=== PATIENT | female | born 1985 | race African-American/Black ===

== ENCOUNTER 2019-01-05 17:42 | Emergency (ER) | payer SELFPAY ==
[~2019-01-05 17:42] MED LIST: QUET200T PO; SEROQUEL PO; SERT50TA PO; SUCR1TAB30; SUCR1TAB30 PO; TRAZ-213 PO; TRAZODONE; ZOLOFT
== END 2019-01-05 18:39 | disposition left against medical advice (07) ==
LOC: ER 17:42
DX: R06.02 Shortness of breath (principal); Z53.21 Procedure and treatment not carried out due to patient leaving prior to being seen by health care provider

== ENCOUNTER 2019-04-16 07:07 | Inpatient (IN) | payer MEDICAID, OTHER ==
[~2019-04-16] VITALS: Ht 160 cm; Wt 82.6 kg
[2019-04-16] MEDS ORDERED: FERR325T6 PO (07:20)
[2019-04-16] MEDS ORDERED: PNV1TABL76 PO (07:20)
[2019-04-16] MEDS ORDERED: NALOXONE HCL 0.4 MG/ML 1ML VIAL IM PRN (08:00)
[2019-04-16] MEDS ORDERED: METHYLERGONOVINE MALEATE 0.2 MG/ML IM PRN (08:00)
[2019-04-16] MEDS ORDERED: CARBOPROST TROMETHAMINE 250 MCG/ML AMPUL IM PRN (08:00)
[2019-04-16] MEDS ORDERED: BUTORPHANOL TARTRATE 2 MG/ML VIAL IV PRN (08:00)
[2019-04-16] MEDS ORDERED: LIDOCAINE HCL 1% 20ML VIAL (Pyxis) INJ INFIL PRN (08:00)
[2019-04-16] MEDS ORDERED: MISOPROSTOL 100MCG TABLET VG PRN (08:00)
[2019-04-16] MEDS ORDERED: DEXT 5%/LR + PITOCIN 20UNITS/L 1,000 ML IV PRN (08:00)
[2019-04-16] MEDS: LACTATED RINGERS 1,000 ML IV SCH ×2 (08:28→14:05)
[2019-04-16 08:54] LABS: BASOPHILS % 0.7 % (0.0-2.0); EOSINOPHILS % 1.4 % (0.0-5.0); HEMATOCRIT. 31.8 % (36.0-48.0); HEMOGLOBIN. 10.2 g/dL (12.0-16.0); LYMPHOCYTES % 23.4 % (20.0-50.0); MEAN CORPUSCULAR HEMOGLOBIN 22.2 pg (28.0-32.0); MEAN CORPUSCULAR VOLUME 69.2 fL (81.0-99.0); MEAN PLATELET VOLUME 8.8 fl (7.4-10.4); MONOCYTES % 10.1 % (2.0-8.0); NEUTROPHILS % 64.4 % (40.0-76.0); PLATELET 372 x1000/uL (130-400); RED BLOOD CELL COUNT 4.59 mill/uL (4.2-5.4); RED CELL DISTRIBUTION WIDTH 18.2 % (11.6-14.6)
[2019-04-16 08:59] LABS: CLARITY URINE TURBID (CLEAR); COLOR URINE DARK YELLOW (YELLOW); KETONES URINE NEGATIVE (NEGATIVE); LEUKOCYTE ESTERASE URINE TRACE (NEGATIVE); NITRITE URINE NEGATIVE (NEGATIVE); OCCULT BLOOD URINE 2+ (NEGATIVE); PH URINE 6.5 (4.5-8.0); PROTEIN URINE 2+ (NEGATIVE)
[2019-04-16 09:03] LABS: INR 0.9; PARTIAL THROMBOPLASTIN TIME 25.9 sec (23.4-31.0); PROTHROMBIN TIME 9.2 sec (9.6-11.0)
[2019-04-16] MEDS ORDERED: ONDANSETRON HCL 4MG/2ML INJ IV PRN (09:15)
[2019-04-16] MEDS ORDERED: DIPHENHYDRAMINE 50MG/ML VIAL IM PRN (09:15)
[2019-04-16] MEDS ORDERED: METOCLOPRAMIDE HCL 10MG/2ML VIAL IV PRN (09:15)
[2019-04-16] MEDS ORDERED: ROPIVACAINE HCL/PF EPIDURAL 200 ML EPI ONE (09:15)
[2019-04-16] MEDS ORDERED: DIPHENHYDRAMINE 50MG/ML VIAL IV PRN (09:15)
[2019-04-16 09:18] LABS: *BENZODIAZEPINES SCREEN URINE NEGATIVE (NEGATIVE); *COCAINE SCREEN URINE NEGATIVE (NEGATIVE)
[2019-04-16 09:19] LABS: *AMPHETAMINES SCREEN URINE NEGATIVE (NEGATIVE); *BARBITURATES SCREEN URINE NEGATIVE (NEGATIVE); METHADONE URINE SCREEN NEGATIVE (NEGATIVE); OPIATES URINE SCREEN NEGATIVE (NEGATIVE); PHENCYCLIDINE URINE SCREEN NEGATIVE (NEGATIVE)
[2019-04-16 09:21] LABS: PLATELET ESTIMATE NORMAL
[2019-04-16 09:35] LABS: CANNABINOID URINE SCREEN PRESUMTIVE POSITIVE (NEGATIVE)
[2019-04-16 13:11] LABS: HEPATITIS B SURFACE ANTIGEN NEGATIVE
[2019-04-16] MEDS ORDERED: SODIUM BICARBONATE 4% (2.4MEQ) 5ML VIAL IV ONE (13:11)
[2019-04-16] MEDS ORDERED: BUPIVACAINE HCL/PF 0.5% (5MG/ML) 10ML ONE (13:11)
[2019-04-16] MEDS ORDERED: BUPIVACAINE HCL/PF 0.25% (2.5MG/ML) 10ML ONE (13:11)
[2019-04-16] MEDS ORDERED: DEXT 5%/LR + PITOCIN 20UNITS/L 1,000 ML IV SCH (17:47)
[2019-04-16] MEDS ORDERED: DIPHENHYDRAMINE 25MG CAPSULE PO PRN (18:00)
[2019-04-16] MEDS ORDERED: IBUPROFEN 800MG TABLET PO PRN (18:00)
[2019-04-16] MEDS ORDERED: LANOLIN OINT 7GM TUBE TOP PRN (18:00)
[2019-04-16] MEDS ORDERED: IBUPROFEN 400MG TABLET PO PRN (18:00)
[2019-04-16] MEDS ORDERED: GUAIFENESIN-DM 200MG-20MG/10ML UDC PO PRN (18:00)
[2019-04-16] MEDS ORDERED: ALBUTEROL (0.5%) 2.5MG/0.5ML NEB HHN PRN (18:00)
[2019-04-16] MEDS ORDERED: GLYCERIN/WITCH HAZEL LEAF MEDICATED PAD TOP PRN (18:00)
[2019-04-16] MEDS ORDERED: BENZOCAINE/LANOLIN/ALOE VERA SPRAY TOP PRN (18:00)
[2019-04-16] MEDS ORDERED: HEMORRHOIDAL SUPP PR PRN (18:00)
[2019-04-16] MEDS ORDERED: ALBUTEROL (0.083%) 2.5MG/3ML NEB ONE (18:31)
[2019-04-16] MEDS: ACETAMINOPHEN WITH CODEINE 300/30MG TABLET PO PRN (19:58)
[2019-04-16 20:30] VITALS: BP 121/73
[2019-04-16] MEDS: DOCUSATE SODIUM 100MG CAPSULE PO SCH (21:12)
[2019-04-17 04:00] VITALS: BP 129/81
[2019-04-17] MEDS: ACETAMINOPHEN WITH CODEINE 300/30MG TABLET PO PRN ×3 (05:35→19:53)
[2019-04-17 07:09] LABS: BASOPHILS % 0.2 % (0.0-2.0); EOSINOPHILS % 0.6 % (0.0-5.0); HEMATOCRIT. 29.4 % (36.0-48.0); HEMOGLOBIN. 9.2 g/dL (12.0-16.0); LYMPHOCYTES % 13.7 % (20.0-50.0); MEAN CORPUSCULAR HEMOGLOBIN 21.8 pg (28.0-32.0); MEAN CORPUSCULAR VOLUME 69.5 fL (81.0-99.0); NEUTROPHILS % 78.5 % (40.0-76.0); PLATELET 355 x1000/uL (130-400); RED BLOOD CELL COUNT 4.23 mill/uL (4.2-5.4); RED CELL DISTRIBUTION WIDTH 18.9 % (11.6-14.6)
[2019-04-17 07:36] VITALS: BP 129/82
[2019-04-17] MEDS ORDERED: TETANUS, DIPHTHERIA, PERTUSSIS VAC/PF 0.5ML (>7YR OLD) IM ONE (08:00)
[2019-04-17] MEDS ORDERED: INFLUENZA VIRUS VACCINE(AFLURIA) 0.5ML SYR IM ONE (08:00)
[2019-04-17] MEDS: PRENATAL VIT/FE FUMARATE/FA TABLET PO SCH (08:28)
[2019-04-17] MEDS: FERROUS SULFATE 325MG TABLET PO SCH ×3 (08:29→17:24)
[2019-04-17 16:21] VITALS: BP 126/77
[2019-04-17 19:10] VITALS: BP 115/85
[2019-04-17] MEDS: DOCUSATE SODIUM 100MG CAPSULE PO SCH (19:52)
[2019-04-17 23:00] VITALS: BP 114/83
[2019-04-18] MEDS ORDERED: IBUP-2029 MT (05:26)
[2019-04-18] MEDS: PRENATAL VIT/FE FUMARATE/FA TABLET PO SCH (08:52)
[2019-04-18] MEDS: ACETAMINOPHEN WITH CODEINE 300/30MG TABLET PO PRN (08:52)
[2019-04-18 09:19] VITALS: BP 120/85
[2019-04-23 06:07] LABS: CANNABINOID CONFIRMATION URINE Positive (.)
== END 2019-04-18 11:30 | disposition home or self-care (01) | DRG 560 ==
LOC: EDBD 07:07 → OBSVTOIN 07:07 → 8 EST LDRP 07:07 → 8EST 20:20
PROVIDERS: ADMIT Obstetrics & Gynecology; ATTEND Obstetrics & Gynecology
PROC: 10D07Z6 Extraction of Products of Conception, Vacuum, Via Natural or Artificial Opening (ICD-10-PCS; principal; 2019-04-16)
PROC: 00HU33Z Insertion of Infusion Device into Spinal Canal, Percutaneous Approach (ICD-10-PCS; 2019-04-16)
PROC: 3E0R3BZ Introduction of Anesthetic Agent into Spinal Canal, Percutaneous Approach (ICD-10-PCS; 2019-04-16)
PROC: 0HQ9XZZ Repair Perineum Skin, External Approach (ICD-10-PCS; 2019-04-16)
DX: O99.62 Diseases of the digestive system complicating childbirth (principal); K51.90 Ulcerative colitis, unspecified, without complications; O99.02 Anemia complicating childbirth; J45.909 Unspecified asthma, uncomplicated; O77.0 Labor and delivery complicated by meconium in amniotic fluid; O99.52 Diseases of the respiratory system complicating childbirth; D64.9 Anemia, unspecified; Z37.0 Single live birth; O70.0 First degree perineal laceration during delivery; Z3A.40 40 weeks gestation of pregnancy; Z88.0 Allergy status to penicillin; Z88.6 Allergy status to analgesic agent; Z88.1 Allergy status to other antibiotic agents
CPT/HCPCS: 36415; 80305; 80349; 81003; 86592; 86703; 86762; 86850; 86900; 87340; 99281; G0378; J2405; J2590; J2795; J3490; J7611; A4315